=== PATIENT | female | born 1980 | race Hispanic/Latino ===

== ENCOUNTER 2021-11-10 13:34 | Outpatient (CLI) | payer SELFPAY ==
[2021-11-11 00:56] LABS: SARS-CoV-2 PCR by NAA Not Detected (NotDetected)
== END 2021-11-10 13:35 | disposition home or self-care (01) ==
LOC: LABBT 13:34
PROVIDERS: ATTEND Orthopaedic Surgery
DX: S52.501A Unspecified fracture of the lower end of right radius, initial encounter for closed fracture (principal); Z20.822 Contact with and (suspected) exposure to COVID-19
CPT/HCPCS: U0003; U0005

== ENCOUNTER 2021-11-12 10:18 | Day surgery (SDC) | payer OTHER ==
[2021-11-11 09:07] VITALS: BMI 28.5
[2021-11-12] MEDS ORDERED: Fentanyl 100 MCG/2 ML VIAL ONE (11:19)
[2021-11-12] MEDS ORDERED: Midazolam HCl 2 mg/2 ml Vial ONE (11:19)
[2021-11-12] MEDS ORDERED: fentaNYL Citrate/PF 100 MCG/2 ML SYRINGE ONE (11:50)
[2021-11-12] MEDS ORDERED: CEFAZOLIN 2 GM VIAL ONE (12:43)
[2021-11-12] MEDS ORDERED: Sodium Chloride 0.9% 100 ML ONE (12:43)
[2021-11-12] MEDS ORDERED: Bupivacaine HCl 0.5%/Epinephrine 1:200,000/PF 30 ml Vial ONE (13:26)
[2021-11-12] MEDS ORDERED: Ondansetron PF 4 MG/2 ML Vial ONE (13:26)
[2021-11-12] MEDS ORDERED: PROPOFOL 200 MG/20 ML VIAL ONE (13:26)
[2021-11-12] MEDS ORDERED: Dexamethasone 20 MG/5 ML VIAL ONE (13:26)
== END 2021-11-12 15:50 | disposition home or self-care (01) ==
LOC: SDC 10:18
PROVIDERS: ATTEND Orthopaedic Surgery
PROC: 0PSH04Z Reposition Right Radius with Internal Fixation Device, Open Approach (ICD-10-PCS; principal; 2021-11-12)
DX: S52.571A Other intraarticular fracture of lower end of right radius, initial encounter for closed fracture (principal); V89.2XXA Person injured in unspecified motor-vehicle accident, traffic, initial encounter
CPT/HCPCS: 76000; C1713; C1776; J1100; J2250; J2405; J2704; J3010; J3490